=== PATIENT | female | born 1960 | race Caucasian/White ===

== ENCOUNTER 2016-11-22 12:13 | Emergency (ER) | payer SELFPAY ==
[~2016-11-22] VITALS: Ht 162.6 cm; Wt 70.5 kg
[~2016-11-22 12:13] MED LIST: CHLO10CA17 PO
[2016-11-22 12:16] VITALS: BP 149/87; PULSE 83; RESP 18; TEMP 99; O2SAT 95
[2016-11-22] MEDS ORDERED: VENTAER INH (12:16)
--- NOTE | 2016-11-22 12:30 | PD ---
HPI Chief Complaint: Musculoskeletal Complaint Time Seen by Provider: 12:21 Travel History International Travel<30 days: No Contact w/Intl Traveler<30days: No Traveled to known affect area: No History of Present Illness HPI 56-year-old female presents to the emergency room via ambulance for evaluation of left knee pain and swelling after injuring it last night. Patient states she jumped into her pool and her left knee jammed onto the third step. She had immediate pain and required assistance getting out of the pool. Patient states she has not been able walk on it since. Pain is severe with any range of motion and localized to the lateral aspect. It radiates into the ramires and posteriorly. No pain at rest and slightly flexed. She took 800 mg ibuprofen this morning without any significant relief in symptoms. Denies paresthesias. Denies hip pain, ankle pain, or foot pain. Only history of asthma. She last drank water this morning at 8:30. She has not eaten today. She does not have an orthopedic surgeon or primary care physician. PFSH Past Medical History Asthma: Yes Diminished Hearing: No Hiatal Hernia: Yes Hypertension: Yes ?: Not Menopausal: Yes Para: 2 Tubal Ligation: Yes Past Surgical History Section: Yes Social History Alcohol Use: Yes ([place] DAILY) Tobacco Use: Yes (PPD) Substance Use: Yes Allergies-Medications (Allergen,Severity, Reaction): Coded Allergies: No Known Allergies (Verified , 03/14/10) Reported Meds & Prescriptions Reported Meds & Active Scripts Active Lortab (Hydrocodone-Acetaminophen) 5-325 Mg Tab 1 Tab PO Q6H PRN Reported Ventolin Hfa 18 GM Inh (Albuterol Sulfate) 90 Mcg/Act Aer 2 Puff INH Q4-6H PRN Review of Systems Except as stated in HPI: all other systems reviewed are Neg Physical Exam Narrative GENERAL: Well-nourished, well-developed female in no acute distress. Afebrile. SKIN: Focused skin assessment warm/dry. No significant erythema or ecchymosis. HEAD: Normocephalic. EYES: No scleral icterus. No injection or drainage. NECK: Supple, trachea midline. No JVD or lymphadenopathy. CARDIOVASCULAR: Regular rate and rhythm without murmurs, gallops, or rubs. RESPIRATORY: Breath sounds equal bilaterally. No accessory muscle use. EXTREMITY: Left knee mildly tender to palpation over the lateral aspect. Limited range of motion secondary to pain. Mild to moderate edema. No obvious effusion. 2+ dorsalis pedis pulse. Full range of motion of left ankle and foot. Data Data Last Documented VS Vital Signs Date Time Temp Pulse Resp B/P Pulse Ox O2 Delivery O2 Flow Rate FiO2 11/22/16 12:16 99.0 83 18 149/87 95 Orders Knee, Complete (4vws) (11/22/16 ) Ct Knee W/O Contrast (11/22/16 ) Acetamin-Hydrocod 325-5 Mg ([place] 5-325 (11/22/16 14:30) Splint Or Brace Apply/Monitor (11/22/16 14:43) Mandatory Outpatient Referral (11/22/16 14:44) Crutches (11/22/16 14:48) MDM Medical Decision Making Medical Screen Exam Complete: Yes Emergency Medical Condition: Yes Medical Record Reviewed: Yes Differential Diagnosis Fracture, strain, sprain, muscle spasms Narrative Course 56-year-old female presents to the emergency room for evaluation of left knee pain after injuring it yesterday. Patient jammed her left knee on the third step at her pool while jumping in. She had immediate pain and has not been able to ambulate since then. Left lower extremity is neurovascularly intact with 2+ dorsalis pedis pulse. Full range of motion of ankle and foot. Limited range of motion of the knee secondary to pain. Patient denies hip pain. X-ray shows possible nondisplaced fracture with request for CT. CT shows minimally depressed lateral plateau fracture. I said to the surgeon on-call, Dr. Poole, who recommends placing patient in the knee immobilizer and having her follow-up in his office. Mandatory outpatient referral was placed. Patient was discharged with crutches and prescription for Lortab. Told to follow-up with Dr. Poole or return for worsening symptoms. She understands and agrees to plan. Diagnosis Primary Impression: Closed fracture of lateral portion of left tibial plateau Qualified Code: S82.122A - Closed fracture of lateral portion of left tibial plateau, initial encounter Referrals: Orthopedist Primary Care Physician Patient Instructions: General Instructions, Leg Fracture (ED) Additional Instructions: Rest and drink plenty of fluids. Lortab as directed, as needed for pain. Do not drink alcohol or drive while taking this medication. Take ibuprofen with food as directed, as needed for pain. Apply ice to the affected area for 20 minutes at a time, as needed for pain and swelling. Follow-up with a primary care physician. Return to the emergency room for worsening symptoms. Scripts Hydrocodone-Acetaminophen (Lortab)5-325 Mg Tab1 Tab PO Q6H PRN (PAIN) #15 TAB Ref 0 Prov:Lore Agrawal MD 11/22/16 Disposition: 01 DISCHARGE HOME Condition: Stable Roberta Evans Nov 22, 2016 12:30
--- NOTE | 2016-11-22 13:25 | RADRPT ---
EXAM DATE/TIME: 11/22/2016 12:34 [facility] COMPARISON: No previous studies available for comparison. INDICATIONS : Left knee pain, jumped in shallow end of pool last night. MEDICAL HISTORY : None. SURGICAL HISTORY : None. ENCOUNTER: Initial ACUITY: 1 day PAIN SCORE: 10/10 LOCATION: Left knee FINDINGS: Four view examination of the left knee demonstrates a questionable fracture involving the lateral tib ial plateau. This is only seen on the AP view. No definite joint effusion is seen. There is no joint dislocation. The distal femur and patella appear grossly intact. CONCLUSION: Questionable nondisplaced intra-articular fracture involving the lateral tibial plateau. Recommend no ncontrast CT scan of the left knee further evaluation. Matt Kaur MD on November 22, 2016 at 13:22 Board Certified Radiologist. This report was verified electronically.
--- NOTE | 2016-11-22 14:20 | RADRPT ---
EXAM DATE/TIME: 11/22/2016 13:44 [facility] COMPARISON: KNEE LEFT COMPLETE (4VWS), November 22, 2016, 12:34. INDICATIONS : Trauma. Fall. Left knee pain. Evaluate fracture. RADIATION DOSE: 11.75 CTDIvol (mGy) MEDICAL HISTORY : Hypertension. Hernia, hiatal. SURGICAL HISTORY : Tubal ligation. section. ENCOUNTER: Initial ACUITY: 1 day PAIN SCALE: 7/10 LOCATION: Left knee TECHNIQUE: Volumetric scanning of the knee was performed. Using automated exposure control and adjustment of th e mA and/or kV according to patient size, radiation dose was kept as low as reasonably achievable to obtain optimal diagnostic quality images. DICOM format image data is available electronically for re view and comparison. FINDINGS: There is very small joint effusion present. The medial plateau is intact. There is lateral plateau fracture involving the anterior outer third of the lateral plateau with very minimal depression of the articular surface. The vertical component does extend down the tibia poss ibly 5 cm. The medial lateral tibial spines are intact. The femoral head is intact. CONCLUSION: Minimally depressed lateral plateau fracture as described above... Manuel Morales MD FACR on November 22, 2016 at 14:15 Board Certified Radiologist. This report was verified electronically.
[2016-11-22] MEDS ORDERED: ACETAMINOPHEN/HYDROcodone 325 MG/5 MG TAB PO ONE (14:30)
[2016-11-22] MEDS ORDERED: HYDR-3533 PO (14:43)
== END 2016-11-22 15:22 | disposition home or self-care (01) ==
LOC: PHEFT 12:13
DX: S82.122A Displaced fracture of lateral condyle of left tibia, initial encounter for closed fracture (principal); I10 Essential (primary) hypertension; F17.200 Nicotine dependence, unspecified, uncomplicated; Z87.09 Personal history of other diseases of the respiratory system; W22.09XA Striking against other stationary object, initial encounter; Y92.095 Swimming-pool of other non-institutional residence as the place of occurrence of the external cause
CPT/HCPCS: 73564; 73700; 99284; E0113; L1830